=== PATIENT | male | born 1950 | race Caucasian/White ===

== ENCOUNTER 2019-01-06 09:15 | Observation (INO) ==
[2019-01-06 09:29] VITALS: BMI 26.6
--- NOTE | 2019-01-06 10:35 | DR.CP ---
HPI Time Seen Time Seen by Provider: 01/06/19 09:59 PCP Primary Care Physician: ARLIN MORALES Complaint Chief Complaint:: CHEST PAIN 4/10, PRESSURE WITH DULL PAIN FEELS HEAVY IN CHEST. DIZZNESS WHEN SQUATTING. NO NUMBNESS IN ARMS. PT HAS CARDIAC HISTORY WITH STENTS. PT HAS NOT FELT GOOD FOR SEVERAL WEEKS NOW BUT CHEST PAIN STARTED ON SUNDAY TRIED TO GET INTO OFFICE BUT COULD NOT BE SEEN Source History Provided: Patient Mode of Arrival Mode of Arrival: Ambulatory Timing Onset of Chief Complaint: 01/03/19 PMH PMH Past Medical History: Yes Past Medical History: Angina and Diabetes Past Surgical History: Yes Surgical History: Other Past Surgical History Comment: STENT PLACEMENT Family History History of Family Medical Conditions: No Social History Does any household member use tobacco: No Alcohol Use: None Do you use any recreational Drugs:: No Lives With: Spouse Lives Where: Home infectious screening In the last 2 months have you had wt loss of >10#?: NO Have you had fever, night sweats or hemotysis?: No Have you traveled outside the country in the last 6 months?: No Isolation: Standard ROS Review of Systems Constitutional: No Symptoms Reported Eyes: No Symptoms Reported ENTM: No Symptoms Reported Respiratoy: No Symptoms Reported Cardiovascular: Chest Pain (onset one week ago, lasting 10-45 minutes, location xiphoid and right chest) Gastrointestinal/Abdominal: No Symptoms Reported Genitourinary: No Symptoms Reported Neurological: No Symptoms Reported and Weakness; negative Anxiety and Emotional Problems Musculoskeletal: Chest wall Hematologic/Lymphatic: No Symptoms Reported Endocrine: No Symptoms Reported Psychiatric: No Symptoms Reported All Other Systems: Reviewed and Negative PE Vitals Vitals: Temperature 98.1 F Pulse Rate [Left Brachial] 71 Pulse Rate 78 Respiratory Rate 20 Blood Pressure [Right Arm] 111/57 Blood Pressure [Left Arm] 210/91 Blood Pressure 193/84 O2 Sat by Pulse Oximetry 97 General Limitations: No Limitations General Appearance: Alert, In No Apparent Distress and Anxious Head Head Exam: Normal Inspection, Atraumatic and Normocephalic Eyes Eye exam: Normal Appearance, PERRL and EOMI ENT ENT Exam: Normal Exam, Normal Oropharynx and Normal External Ear Exam Chest Chest Inspection: Normal Inspection, Symmetric Chest Wall Rise and Tenderness (xiphoid, right chest wall) Respiratory Respiratory Exam: Normal Lung Sounds Bilat; negative Prolonged Expiratory Phase Respiratory Exam: Bilateral: Clear to Auscultation Cardiovascular Cardiovascular Exam: Regular Rate and Normal Rhythm Pulse: Normal and Radial Abdominal Exam Abdominal Exam: Normal Inspection, Normal Bowel Sounds and Soft Psychiatric Psychiatric Exam: Normal Affect and Normal Mood Skin Skin Exam: Warm, Dry, Intact and Normal Color MDM Additional Information Findings: Gastritis, Peptic ulcer, PA COURSE Treatment Treatment: Routine cardiac workup- Reevaluation 1st: Improved Consultation Call Returned: 11:37 Consultation Comments: Dr. Tellez agreed to admit for chest pain protocol ROR Labs Reviewed Laboratory Results Reviewed?: Yes Result Diagrams: 01/06/19 11:00 01/06/19 11:00 Laboratory: WBC 6.3 X10^3/uL (3.6-10.0) 01/06/19 11:00 RBC 5.25 X10^6/uL (4.7-6.0) 01/06/19 11:00 Hgb 16.2 g/dL (13.5-18.0) 01/06/19 11:00 Hct 47.5 % (42.0-54.0) 01/06/19 11:00 MCV 90.4 fL (80.0-100.0) 01/06/19 11:00 MCH 30.8 pg (27.0-34.0) 01/06/19 11:00 MCHC 34.1 g/dL (33.0-35.0) 01/06/19 11:00 RDW 13.3 % (11.6-16.5) 01/06/19 11:00 Plt Count 176 X10^3/uL (150.0-450.0) 01/06/19 11:00 MPV 7.1 fL (7.4-11.0) L 01/06/19 11:00 Neut % (Auto) 64.7 % (42.0-75.0) 01/06/19 11:00 Lymph % (Auto) 26.8 % (21.0-51.0) 01/06/19 11:00 [place] % (Auto) 5.7 % (0.0-13.0) 01/06/19 11:00 Eos % (Auto) 2.3 % (0.9-2.9) 01/06/19 11:00 Baso % (Auto) 0.5 % (0.2-1.0) 01/06/19 11:00 Neut # (Auto) 4.1 x10^3/uL (2.2-4.8) 01/06/19 11:00 Lymph # (Auto) 1.7 X10^3/uL (1.3-2.9) 01/06/19 11:00 [place] # (Auto) 0.4 x10^3/uL (0.3-0.8) 01/06/19 11:00 Eos # (Auto) 0.1 x10^3/uL (0.0-0.2) 01/06/19 11:00 Baso # (Auto) 0.0 X10^3/uL (0.0-0.1) 01/06/19 11:00 Absolute Nucleated RBC 0.0 /100WBC 01/06/19 11:00 Sodium 138 mmol/L (136-145) 01/06/19 11:00 Corrected Sodium 142 mmol/L (136-145) 01/06/19 11:00 Potassium 4.8 mmol/L (3.5-5.1) 01/06/19 11:00 Chloride 100 mmol/L (98-107) 01/06/19 11:00 Carbon Dioxide 28.0 mmol/L (21-32) 01/06/19 11:00 BUN 20 mg/dL (7-18) H 01/06/19 11:00 Creatinine 0.92 mg/dL (0.70-1.30) 01/06/19 11:00 Est GFR (MDRD) Af Amer > 60 (>60) 01/06/19 11:00 Est GFR (MDRD) Non-Af > 60 (>60) 01/06/19 11:00 Glucose 262 mg/dL (65-99) H 01/06/19 11:00 POC Glucose (mg/dL) 243 mg/dL (65-99) H 01/06/19 20:12 Calcium 9.3 mg/dL (8.5-10.1) 01/06/19 11:00 Corrected Calcium TNP 01/06/19 11:00 Total Bilirubin 0.40 mg/dL (0.2-1.0) 01/06/19 11:00 AST 22 Units/L (15-37) 01/06/19 11:00 ALT 44 Units/L (12-78) 01/06/19 11:00 Alkaline Phosphatase 95 Units/L (46-116) 01/06/19 11:00 Creatine Kinase 88 Units/L (39-308) 01/06/19 23:00 CK-MB (CK-2) 2.5 ng/mL (0-4.0) 01/06/19 23:00 CK/CKMB % Calc 2.8 % (<4) 01/06/19 23:00 Troponin I < 0.02 ng/mL (0-1.5) 01/06/19 23:00 Total Protein 7.8 g/dL (6.4-8.2) 01/06/19 11:00 Albumin 3.8 g/dL (3.4-5.0) 01/06/19 11:00 Globulin 4.0 g/dL (2.5-4.5) 01/06/19 11:00 Albumin/Globulin Ratio 1.0 Ratio (1.1-2.1) L 01/06/19 11:00 Other Results Comments: AP Chest: The heart is within normal limits in size. The griselda are normal. The lung hancock are clear. No pleural effusions are identified. The bony thorax is unremarkable with the exception of diffuse thoracic spondylosis. XRAY XRAY Interpreted by: Radiologist ADDITIONAL NOTES Additional Notes Additional Notes: Admit for chest pain protocol
[2019-01-06 11:06] LABS: BASOPHILS % (AUTO) 0.5 % (0.2-1.0); EOSINOPHILS # (AUTO) 0.1 x10^3/uL (0.0-0.2); EOSINOPHILS % (AUTO) 2.3 % (0.9-2.9); HEMATOCRIT 47.5 % (42.0-54.0); HEMOGLOBIN 16.2 g/dL (13.5-18.0); LYMPHOCYTES # (AUTO) 1.7 X10^3/uL (1.3-2.9); LYMPHOCYTES % (AUTO) 26.8 % (21.0-51.0); MEAN CORPUSCULAR HEMOGLOBIN 30.8 pg (27.0-34.0); MEAN CORPUSCULAR HGB CONC 34.1 g/dL (33.0-35.0); MEAN CORPUSCULAR VOLUME 90.4 fL (80.0-100.0); MEAN PLATELET VOLUME 7.1 fL (7.4-11.0); MONOCYTES # (AUTO) 0.4 x10^3/uL (0.3-0.8); MONOCYTES % (AUTO) 5.7 % (0.0-13.0); NEUTROPHILS # (AUTO) 4.1 x10^3/uL (2.2-4.8); NEUTROPHILS % (AUTO) 64.7 % (42.0-75.0); PLATELET COUNT 176 X10^3/uL (150.0-450.0); RED BLOOD COUNT 5.25 X10^6/uL (4.7-6.0); RED CELL DISTRIBUTION WIDTH 13.3 % (11.6-16.5); WHITE BLOOD COUNT 6.3 X10^3/uL (3.6-10.0)
--- NOTE | 2019-01-06 11:14 | RAD ---
HISTORY: Chest pain, shortness of breath Study: Chest AP portable Comparison: None Findings: The heart is within normal limits in size. The griselda are normal. The lung hancock are clear. No pleural effusions are identified. The bony thorax is unremarkable with the exception of diffuse thoracic spondylosis. IMPRESSION: Lungs clear Reported By:
[2019-01-06 11:27] LABS: BLOOD UREA NITROGEN 20 mg/dL (7-18); CALCIUM 9.3 mg/dL (8.5-10.1); CHLORIDE 100 mmol/L (98-107); COR NA(FOR HYPERGLY) 142 mmol/L (136-145); CREATININE 0.92 mg/dL (0.70-1.30); SODIUM 138 mmol/L (136-145); TROPONIN I < 0.02 ng/mL (0-1.5); eGFR NON BLACK RACES > 60 (>60)
[2019-01-06 11:31] LABS: ALANINE AMINOTRANSFERASE 44 Units/L (12-78); ALBUMIN 3.8 g/dL (3.4-5.0); ALKALINE PHOSPHATASE 95 Units/L (46-116); ASPARTATE AMINO TRANSFERASE 22 Units/L (15-37); CKMB % 3.5 % (<4); CREATINE KINASE 87 Units/L (39-308); TOTAL PROTEIN 7.8 g/dL (6.4-8.2)
[2019-01-06] MEDS: LOVENOX INJ 40 MG SYR SC SCH (14:00)
[2019-01-06] MEDS: HumuLIN R SUBCUT PRN (17:14)
[2019-01-06 17:22] LABS: CKMB % 3.1 % (<4); CREATINE KINASE 83 Units/L (39-308); CREATINE KINASE MB 2.6 ng/mL (0-4.0); TROPONIN I < 0.02 ng/mL (0-1.5)
[2019-01-06] MEDS ORDERED: SNACK - Diabetic Appropriate PO SCH (20:00)
[2019-01-06] MEDS: SNACK - Diabetic Appropriate PO SCH (20:27)
[2019-01-06] MEDS: LEVEMIR SC SCH (20:28)
[2019-01-06] MEDS: ASPIRIN EC 81 MG PO SCH (20:28)
[2019-01-06] MEDS: DIABETA PO SCH (20:28)
[2019-01-06] MEDS: PLAVIX PO SCH (20:28)
[2019-01-06 23:33] LABS: CKMB % 2.8 % (<4); CREATINE KINASE 88 Units/L (39-308); CREATINE KINASE MB 2.5 ng/mL (0-4.0); TROPONIN I < 0.02 ng/mL (0-1.5)
[2019-01-07] MEDS: HumuLIN R SUBCUT PRN ×2 (05:35→12:55)
[2019-01-07 06:15] LABS: BASOPHILS # (AUTO) 0.1 X10^3/uL (0.0-0.1); BASOPHILS % (AUTO) 0.7 % (0.2-1.0); EOSINOPHILS # (AUTO) 0.3 x10^3/uL (0.0-0.2); EOSINOPHILS % (AUTO) 3.8 % (0.9-2.9); HEMATOCRIT 44.7 % (42.0-54.0); HEMOGLOBIN 15.5 g/dL (13.5-18.0); LYMPHOCYTES % (AUTO) 27.2 % (21.0-51.0); MEAN CORPUSCULAR HEMOGLOBIN 31.2 pg (27.0-34.0); MEAN CORPUSCULAR HGB CONC 34.7 g/dL (33.0-35.0); MEAN CORPUSCULAR VOLUME 89.7 fL (80.0-100.0); MEAN PLATELET VOLUME 7.5 fL (7.4-11.0); MONOCYTES # (AUTO) 0.6 x10^3/uL (0.3-0.8); NEUTROPHILS # (AUTO) 4.5 x10^3/uL (2.2-4.8); NEUTROPHILS % (AUTO) 60.3 % (42.0-75.0); PLATELET COUNT 164 X10^3/uL (150.0-450.0); RED BLOOD COUNT 4.98 X10^6/uL (4.7-6.0); RED CELL DISTRIBUTION WIDTH 13.4 % (11.6-16.5); WHITE BLOOD COUNT 7.5 X10^3/uL (3.6-10.0)
[2019-01-07 06:24] LABS: ALANINE AMINOTRANSFERASE 43 Units/L (12-78); ALBUMIN 3.3 g/dL (3.4-5.0); ALKALINE PHOSPHATASE 84 Units/L (46-116); ASPARTATE AMINO TRANSFERASE 26 Units/L (15-37); BLOOD UREA NITROGEN 17 mg/dL (7-18); CALCIUM 8.6 mg/dL (8.5-10.1); CARBON DIOXIDE 27.9 mmol/L (21-32); CHLORIDE 100 mmol/L (98-107); COR CA(FOR HYPOALB) 9.2 mg/dL (8.5-10.1); COR NA(FOR HYPERGLY) 139 mmol/L (136-145); CREATININE 0.86 mg/dL (0.70-1.30); SODIUM 136 mmol/L (136-145); TOTAL PROTEIN 7.1 g/dL (6.4-8.2); eGFR NON BLACK RACES > 60 (>60)
[2019-01-07] MEDS ORDERED: TYLENOL 500 MG TAB EXTRA STRENGTH PO PRN (08:15)
[2019-01-07] MEDS ORDERED: PEPCID 20 MG IV PREMIX* 20 MG/50 ML BAG IV ONE (08:15)
--- NOTE | 2019-01-07 09:03 | DR.H&P ---
H&P - History & Physical for Day of: H&P Date: 01/06/19 - Chief Complaint Chief Complaint: chest pain - History of Present Illness History of Present Illness: 68 WM ER ADMISSION WITH CO CHEST PAIN 4/10, PRESSURE WITH DULL PAIN FEELS HEAVY IN CHEST. DIZZNESS WHEN SQUATTING. NO NUMBNESS IN ARMS. PT HAS CARDIAC HISTORY WITH STENT ONE YEAR AGO PER DR KRISHNAN AT [facility]. PT HAS NOT FELT GOOD FOR SEVERAL WEEKS NOW BUT CHEST PAIN STARTED ON SUNDAY TRIED TO GET INTO OFFICE BUT COULD NOT BE SEEN. PT HAS PMH HYPERLIPIDEMIA, CAD, HTN, DM. PT ADMITTED FOR SERIAL CE AND EKGS, R/O AMI, EVALUATION OF CP AND SOB - Past Medical History Past Medical History: Angina, Arthritis, Coronary Artery Disease, Diabetes, Dyslipidemia, Hypertension - Past Surgical History Surgical History: Angioplasty/Stents, Other - Social History Does patient currently use any type of tobacco product: No Have you used tobacco products in the last 12 months: No Type of Tobacco Use: None Does any household member use tobacco: No Alcohol Use: None Drug Use: None - Medications Home Medications: No Known Drug Allergies Allergy (Verified 01/06/19 09:29) CONTINUE taking the following medications aspirin [Aspir-Low] 81 mg PO HS 01/06/19 [History] clopidogrel 75 mg PO HS 01/06/19 [History] glyburide 10 mg PO BID 01/06/19 [History] insulin detemir U-100 [Levemir FlexTouch U-100 Insuln] 40 units SUBCUT BID 01/06/19 [History] - Review of Systems Constitutional: Weakness, Malaise Eyes: No Symptoms Reported ENT: No Symptoms Reported Respiratory: SOB with Excertion Cardiovascular: Chest Pain Gastrointestinal: No Symptoms Reported Genitourinary: No Symptoms Reported Musculoskeletal: No Symptoms Reported Skin: No Symptoms Reported Neurological: Weakness - Physical Exam Vital Signs: Temperature 98.1 F Pulse Rate [Left Brachial] 71 Pulse Rate 78 Respiratory Rate 20 Blood Pressure [Right Arm] 111/57 Blood Pressure [Left Arm] 210/91 Blood Pressure 193/84 O2 Sat by Pulse Oximetry 97 Oriented: Normal Eyes: Normal Ear: Normal Nose: Normal Throat: Normal Respiratory: RLL Diminished, LLL Diminished Cardiovascular: Normal. negative: Edema : Normal Auscultation: Bowel Sounds: Normal Palpation: Normal Tenderness: Normal Musculoskeletal: Normal - Assessment/Plan (1) Chest pain Status: Acute Plan: ADMIT, SERIAL CE AND EKG. SUPPLEMENTAL O2, STRICT I & O. CXR ON ADMISSION, AM CTA CHEST WITH CONTRAST. BP AND BS CONTROL. VERIFY HOME MEDICATION, CONTINUE PLAVIX (2) Hyperlipidemia Status: Acute (3) Diabetes Status: Acute (4) CAD (coronary artery disease) Status: Acute - Allergies Allergies/Adverse Reactions: Allergies Allergy/AdvReac Type Severity Reaction Status Date / Time No Known Drug Allergies Allergy Verified 01/06/19 09:29
[2019-01-07] MEDS: LEVEMIR SC SCH ×2 (09:19→20:52)
[2019-01-07] MEDS: DIABETA PO SCH ×2 (09:19→20:52)
[2019-01-07] MEDS: LOVENOX INJ 40 MG SYR SC SCH (09:20)
[2019-01-07 10:00] LABS: CKMB % 2.6 % (<4); CREATINE KINASE 80 Units/L (39-308); CREATINE KINASE MB 2.1 ng/mL (0-4.0); TROPONIN I < 0.02 ng/mL (0-1.5)
[2019-01-07] MEDS ORDERED: NS 100 ML IV 100 ML ONE (11:34)
[2019-01-07] MEDS: CRESTOR TAB 10 MG PO SCH (12:56)
--- NOTE | 2019-01-07 13:08 | CT ---
HISTORY: Chest pain, shortness of breath Study: CTA chest with contrast for pulmonary embolus Comparison: None Technique: Axial post-contrast images with coronal, sagittal, and three-dimensional maximum intensity projection images obtained in evaluated. Dose reduction procedures were used with mA/kv adjusted for body size. Findings: There is no evidence for acute pulmonary thromboembolic disease. Examination of the mediastinum demonstrated no mediastinal masses, enlarged mediastinal or enlarged hilar adenopathy, significant aortic abnormality, or pleural effusions. No chest wall or axillary abnormality is identified. Those portions of the upper abdominal organs visualized were within normal limits. Examination of the lung hancock demonstrated no significant nodules, masses, alveolar infiltrates, areas of consolidation, peribronchial thickening, or bronchiectasis. IMPRESSION: No evidence for acute pulmonary thromboembolic disease Lungs clear Reported By:
[2019-01-07] MEDS: SNACK - Diabetic Appropriate PO SCH (20:51)
[2019-01-07] MEDS: PLAVIX PO SCH (20:52)
[2019-01-07] MEDS: ASPIRIN EC 81 MG PO SCH (20:52)
[2019-01-08 05:19] LABS: BASOPHILS % (AUTO) 0.7 % (0.2-1.0); EOSINOPHILS # (AUTO) 0.2 x10^3/uL (0.0-0.2); EOSINOPHILS % (AUTO) 3.7 % (0.9-2.9); HEMATOCRIT 45.4 % (42.0-54.0); HEMOGLOBIN 15.6 g/dL (13.5-18.0); LYMPHOCYTES # (AUTO) 1.7 X10^3/uL (1.3-2.9); LYMPHOCYTES % (AUTO) 25.9 % (21.0-51.0); MEAN CORPUSCULAR HGB CONC 34.4 g/dL (33.0-35.0); MEAN CORPUSCULAR VOLUME 90.3 fL (80.0-100.0); MEAN PLATELET VOLUME 7.4 fL (7.4-11.0); MONOCYTES # (AUTO) 0.6 x10^3/uL (0.3-0.8); MONOCYTES % (AUTO) 8.2 % (0.0-13.0); NEUTROPHILS # (AUTO) 4.1 x10^3/uL (2.2-4.8); NEUTROPHILS % (AUTO) 61.5 % (42.0-75.0); PLATELET COUNT 166 X10^3/uL (150.0-450.0); RED BLOOD COUNT 5.02 X10^6/uL (4.7-6.0); WHITE BLOOD COUNT 6.7 X10^3/uL (3.6-10.0)
[2019-01-08 05:28] LABS: ALANINE AMINOTRANSFERASE 40 Units/L (12-78); ALBUMIN 3.3 g/dL (3.4-5.0); ALKALINE PHOSPHATASE 86 Units/L (46-116); ASPARTATE AMINO TRANSFERASE 20 Units/L (15-37); BLOOD UREA NITROGEN 17 mg/dL (7-18); CALCIUM 8.7 mg/dL (8.5-10.1); CARBON DIOXIDE 26.7 mmol/L (21-32); CHLORIDE 100 mmol/L (98-107); COR CA(FOR HYPOALB) 9.3 mg/dL (8.5-10.1); COR NA(FOR HYPERGLY) 139 mmol/L (136-145); SODIUM 135 mmol/L (136-145); TOTAL PROTEIN 7.1 g/dL (6.4-8.2); eGFR NON BLACK RACES > 60 (>60)
[2019-01-08] MEDS: HumuLIN R SUBCUT PRN ×2 (05:46→11:17)
[2019-01-08 08:03] VITALS: BP 126/57
[2019-01-08] MEDS: DIABETA PO SCH (08:45)
[2019-01-08] MEDS: CRESTOR TAB 10 MG PO SCH (08:45)
[2019-01-08] MEDS: LEVEMIR SC SCH (08:45)
[2019-01-08] MEDS: LOVENOX INJ 40 MG SYR SC SCH (08:46)
[2019-01-08] MEDS ORDERED: BENADRYL INJ 50 MG VIAL IVP ONE (09:19)
[2019-01-08] MEDS ORDERED: MORPHINE SULFATE INJ 2 MG INJ IVP PRN (09:19)
== END 2019-01-08 11:47 | disposition short-term general hospital (02) ==
LOC: MED/SURG 09:21 → ER 09:21 → MED/SURG 13:03
PROVIDERS: ADMIT Internal Medicine; ATTEND Internal Medicine
DX: R42 Dizziness and giddiness; R06.02 Shortness of breath; I10 Essential (primary) hypertension; E11.65 Type 2 diabetes mellitus with hyperglycemia; R53.83 Other fatigue; Z79.01 Long term (current) use of anticoagulants; E78.2 Mixed hyperlipidemia; R07.89 Other chest pain; I25.10 Atherosclerotic heart disease of native coronary artery without angina pectoris
CPT/HCPCS: 36415; 71010; 71045; 71275; 80053; 80061; 82550; 82553; 84484; 85025; 93005; 94760; 96365; 96372; 96374; 99284; A4216; A4222; S0028; G0378; J1650; J1815; J7050